=== PATIENT | female | born 1985 | race Caucasian/White ===

== ENCOUNTER 2017-12-18 16:39 | Emergency (ER) | payer OTHER ==
[~2017-12-18] VITALS: Ht 165.1 cm; Wt 121.6 kg
[2017-12-18 16:51] VITALS: BP 99/63
--- NOTE | 2017-12-18 16:58 | NUR ---
PT AMBULATED TO ER CHAIR B
--- NOTE | 2017-12-18 17:04 | NUR ---
32 YO F BIB SELF W/ C/O N/V/D X 2 MONTHS, HEARING VOICES, HAVING HALLUCINATIONS, AND A PAIN 10/10 IN HER HEAD THAT RADIATES TO HER JAW AND BILAT EARS AND FOREHEAD, SHARP/THROBBING. PT DENIES N/V/D AT THIS TIME. PT STATES THAT SHE HAS VOICES IN HER HEAD THAT ARE CONSTANT BUT SHE DOES NOT KNOW WHAT THEY ARE SAYING, THEY ARE JUST LOUD AND "JUMBLED". SHE DOES NOT KNOW WHAT SHE "SEES" WITH THE HALLUCINATIONS. PT DENIES HAVING THOUGHTS OF HARMING HERSELF OR OTHERS. PT A&O X 4. [facility] 15. CMS INTACT. RR EVEN AND UNLABORED. LUNG SOUNDS CLEAR. ABD SOFT. NON-TENDER. PT ALSO STATES THAT SHE BELIEVES HER ANTI-DEPRESSANTS ARE NOT WORKING, BUT SHE IS UNSURE WHICH ONE SHE IS TAKING AT THIS TIME. ER MD FARMER NOTIFIED. PT NEEDS MET. WILL CONTINUE TO MONITOR.
[2017-12-18] MEDS ORDERED: ACETAMINOPHEN EXTRA STRENGTH 500 MG TAB PO ONE (17:35)
--- NOTE | 2017-12-18 18:10 | NUR ---
PATIENT ELOPED FROM FACILITY. DISCHARGE INSTRUCTIONS NOT GIVEN TO PATIENT. DR. HUA NOTIFIED.
== END 2017-12-18 18:10 | disposition left against medical advice (07) ==
LOC: MED 16:39
DX: R44.0 Auditory hallucinations (principal); H92.03 Otalgia, bilateral; F20.9 Schizophrenia, unspecified; F32.9 Major depressive disorder, single episode, unspecified
CPT/HCPCS: 99282

== ENCOUNTER 2018-06-19 17:36 | Emergency (ER) | payer OTHER ==
[~2018-06-19] VITALS: Ht 172.7 cm; Wt 99.8 kg
[2018-06-19 17:40] VITALS: BP 120/75
[2018-06-19 18:40] LABS: BASOPHILS # (AUTO) 0.1 K/uL (0.00-0.22); BASOPHILS % (AUTO) 0.5 % (0.0-2.0); EOSINOPHILS # (AUTO) 0.1 K/uL (0-0.4); EOSINOPHILS % (AUTO) 1.3 % (0.0-4.0); HEMATOCRIT 39.9 % (36-48); HEMOGLOBIN 13.4 g/dL (12.0-16.0); LYMPHOCYTES # (AUTO) 2.6 K/uL (2.5-16.5); LYMPHOCYTES % (AUTO) 26.5 % (20.5-51.1); MEAN CORPUSCULAR HEMOGLOBIN 31 pg (27-31); MEAN CORPUSCULAR HGB CONC 34 g/dL (33-37); MEAN CORPUSCULAR VOLUME 93.1 fL (80-94); MONOCYTES # (AUTO) 0.5 K/uL (0.8-1.0); MONOCYTES % (AUTO) 4.9 % (1.7-9.3); NEUTROPHILS # (AUTO) 6.7 K/uL (1.8-7.7); NEUTROPHILS % (AUTO) 66.8 % (42.2-75.2); PLATELET COUNT (AUTO) 282 K/uL (140-450); RED BLOOD CELL COUNT(AUTO) 4.28 MIL/uL (4.20-5.40); RED CELL DISTRIBUTION WIDTH 13.9 % (11.6-13.7)
[2018-06-19 19:14] LABS: ALBUMIN 3.1 g/dL (3.4-5.0); ANION GAP 14.1 (8-16); ASPARTATE AMINOTRANSFERASE 39 U/L (15-37); CARBON DIOXIDE 21.2 mmol/L (21-32); CHLORIDE 105 mmol/L (98-107); CREATININE 0.5 mg/dL (0.6-1.3); GFR ARICAN-AMERICAN 186 mL/min (>90); GLUCOSE 107 mg/dL (74-106); POTASSIUM 3.3 mmol/L (3.5-5.1); SALICYLATE 6.8 mg/dL (2.8-20.0); SODIUM SERUM 137 mmol/L (136-145); TOTAL BILIRUBIN 0.2 mg/dL (0.0-1.0); UREA NITROGEN, BLOOD 7 mg/dL (7-18)
[2018-06-19 19:18] LABS: ACETAMINOPHEN < 0.5 ug/ml (10-30)
[2018-06-19 19:37] LABS: BARBITURATE, URINE NEG. ng/ml (NEG <=200); BENZODIAZEPINE, URINE NEG. ng/mL (NEG <=200); CANNABINOID, URINE POS. ng/mL (NEG <=50); COCAINE, URINE NEG. ng/mL (NEG <=300); OPIATE, URINE NEG. ng/mL (NEG <=2000); PHENCYCLIDINE SCREEN,URINE NEG. ng/mL (NEG <=25)
[2018-06-19 19:40] LABS: APPEARANCE,URINE CLEAR (CLEAR); COLOR,URINE YELLOW (YELLOW)
[2018-06-19 19:41] LABS: BILIRUBIN,URINE NEGATIVE (NEGATIVE); BLOOD, URINE 2+ (NEGATIVE); LEUKOCYTE ESTERASE ,URINE NEGATIVE (NEGATIVE); NITRITE, URINE NEGATIVE (NEGATIVE); UGLUCOSE NEGATIVE (NEGATIVE)
[2018-06-19] MEDS ORDERED: POTASSIUM CHLORIDE 10 MEQ TABER PO ONE (20:00)
[2018-06-19] MEDS ORDERED: NACL 0.9% 2,000 ML IV ONE (20:00)
[2018-06-19 20:06] LABS: RBC,URINE 0-5 (RARE) /HPF (0-5)
[2018-06-19 22:58] VITALS: BP 114/70
== END 2018-06-19 23:05 | disposition home or self-care (01) ==
LOC: MED 17:36
DX: F10.129 Alcohol abuse with intoxication, unspecified (principal); F32.9 Major depressive disorder, single episode, unspecified; F41.9 Anxiety disorder, unspecified; E87.6 Hypokalemia; F12.90 Cannabis use, unspecified, uncomplicated; F17.210 Nicotine dependence, cigarettes, uncomplicated
CPT/HCPCS: 36415; 70450; 71045; 80053; 80305; 81001; 81003; 81025; 85025; 87086; 99285; G0480; G0482; Q0092; 87186